=== PATIENT | female | born 1995 | race Caucasian/White ===

== ENCOUNTER 2017-02-05 15:35 | Emergency (ER) | payer OTHER ==
[2017-02-05 15:58] VITALS: RESP 16
--- NOTE | 2017-02-05 17:19 | EDPHY ---
H & P Stated Complaint: BACK, NECK PAIN, DISORGANIZED THINKING SINCE YESTERDAY HPI/ROS: CHIEF COMPLAINT: Neck pain HISTORY OF PRESENT ILLNESS: The patient is a 21 y/o female arriving with her mom complaining of neck pain and hot and cold flashes onset yesterday morning. She woke up yesterday with left-sided neck pain extending from her ear down to the base of her neck which is worse with movement and was accompanied by pain in her low back, high heart rate, and a temperature of 99.9 F. During the day yesterday she noticed slower than average reflexes, such as hitting herself in the face while opening cabinet doors, and out of the ordinary behavior such as trying to drive out of the garage without opening the door. She was seen at [facility] yesterday and tested for mononucleosis and strep which came back negative, though she was noted to have "pressure build up" in the left ear. Today her back pain has moved to her midback. She denies any recent trauma. She has mild global headache. She does not have shoulder or arm pain and denies arm numbness or weakness.She is up to date on shots, including meningitis vaccine. REVIEW OF SYSTEMS: A ten point review of systems was performed and is negative with the exception of the items mentioned in the HPI. Past medical history: Right upper quadrant abdominal pain that has been evaluated and found to be normal Past surgical history: Denies Family history: Non-contributory Social history: [employer] student, non-smoker, studies engineering, mother at bedside General Appearance: Alert. Vital signs reviewed. BP 126/76. Afebrile. Eyes: Pupils equal and round, no conjunctival injection, no discharge. Anicteric. ENT, Mouth: Mucous membranes are moist, no oropharyngeal erythema or edema. Neck: Enlarged and tender lymph node on left side, supple. No meningismus, negative Kernig's and Brudzinski's. Respiratory: Lungs are clear to auscultation; no wheezes, rales, or rhonchi. Cardiovascular: Regular rate and rhythm; no murmur, rub, or gallop. Gastrointestinal: Abdomen is soft and nontender, no masses or organomegaly, bowel sounds normal. Skin: Warm and dry, no rashes on exposed skin, normal color. Back: Nontender to palpation over the thoracolumbar spine. No CVAT. Extremities: No lower extremity edema, no calf tenderness or swelling. Neurological: Alert and oriented. Moving all four extremities easily and equally. Cranial nerves II through XII are examined and are intact (visual acuity not tested). Strength is 5 over 5 bilaterally with testing of all major motor groups. Sensation is intact to light touch over all 4 extremities. Deep tendon reflexes are 2+ in the biceps and knees bilaterally. Gait is normal. [id number] is performed accurately. Psychiatric: Normal affect. - Personal History LMP (Females 10-55): Extended Cycle BCP/Inj Current Tetanus Diphtheria and Acellular Pertussis (TDAP): Yes Tetanus Vaccine Date: < 10 YEARS - Medical/Surgical History Hx Asthma: Yes Hx Chronic Respiratory Disease: No Hx Diabetes: No Hx Cardiac Disease: No Hx Renal Disease: No Hx Cirrhosis: No Hx Alcoholism: No Hx HIV/AIDS: No Hx Splenectomy or Spleen Trauma: No Other PMH: PMH- EXERCISED INDUCED ASTHMA. PSH- T&A, CYST REMOVAL, WISDOM - Social History Smoking Status: Never smoked Constitutional: Initial Vital Signs Temperature (C) 37.3 C 02/05/17 15:54 Heart Rate 70 02/05/17 15:54 Respiratory Rate 16 02/05/17 15:54 Blood Pressure 126/76 H 02/05/17 15:54 O2 Sat (%) 99 02/05/17 15:54 O2 Delivery Mode Room Air Allergies/Adverse Reactions: barley Allergy (Verified 03/12/16 16:19) gluten Allergy (Verified 03/12/16 16:19) wheat Allergy (Verified 03/12/16 16:19) ALMONDS Allergy (Uncoded 03/12/16 16:19) DAIRY Allergy (Uncoded 03/12/16 16:19) RYE Allergy (Uncoded 03/12/16 16:19) Home Medications: Medication Instructions Recorded Albuterol Hfa Anes Only 03/12/16 Microgestin Fe 1-20 Tablet 03/12/16 CYCLOBENZAPRINE HCL [Flexeril] 5 mg PO TIDPRN PRN #10 tab 02/05/17 Medical Decision Making ED Course/Re-evaluation: The patient is a healthy 21 y/o female complaining of left-sided neck pain and disordered thinking onset yesterday. She was seen by [facility] yesterday and tested for mononucleosis and strep, both negative. She had a low grade fever, 99.9 F, yesterday, by her report . She is up to date on shots, including meningitis. She has no other associated symptoms. She received a dose of tylenol for her neck pain and mild headache. Neurologic exam is normal. She is not febrile, has no meningeal signs on exam. I do not think that this is bacterial meningitis. Viral meningitis also unlikely. I am more concerned about vascular dissection. CT head, and CTA head and neck performed. 1901: I spoke with radiology regarding the patients imaging. Ct and CTAs are normal, no ICH and no dissection. 1919: I reassessed patient and found her condition unchanged. I informed her of the results of her imaging. We discussed the possibility of meningitis and I explained that bacterial meningitis is quite unlikely. We discussed LP to assess spinal fluid for signs of meningitis. Both she and her mother feel that this is not necessary and I agree. I feel she is safe to return home. She is comfortable with this course of action. Return precaution and follow up given. Symptomatic treatment reviewed. Will try some flexeril for possible muscle spasm causing her neck pain (no radicular findings). Danger signs reviewed. Differential Diagnosis: I considered a ddx that includes but is not limited to tension headache, muscle spasm, migraine headache, meningitis, ICH, carotid or vertebral dissection, venous sinus thrombosis. - Data Points Laboratory Results: Laboratory Results 02/05/17 17:15 02/05/17 17:15 Medications Given: Discontinued Medications Acetaminophen (Tylenol) 650 mg PO EDNOW ONE Stop: 02/05/17 18:36 Last Admin: 02/05/17 18:51 Dose: 650 mg Departure - Departure Disposition: Home, Routine, Self-Care Clinical Impression: Neck pain on left side, Muscle spasm Headache Qualifiers: Headache type: tension-type Headache chronicity pattern: acute headache Intractability: not intractable Qualified Code(s): G44.209 - Tension-type headache, unspecified, not intractable Condition: Good Instructions: Muscle Spasm (ED), General Headache (ED), Neck Pain (ED) Additional Instructions: 1. Take medications as directed below as needed for symptoms for 3-5 days. Take prescriptions as directed as needed. 2. Purchase a lidocaine patch and use as directed on packaging for symptoms. 2. Follow-up with your primary care provider in 3-5 days for unimproved symptoms. 3. Return to the ED for weakness or numbness on one side of the body, difficulty speaking, dramatic worsening headache, high fever, or other worsening of condition. Adult Pain & Fever Control: We recommend Acetaminophen (Tylenol) and Ibuprofen (Motrin,Advil) for pain and fever control. When fever is high or pain severe, both drugs can be used at the same time, but at different intervals. Please note the time differences. Your dose is: Acetaminophen 650mg every 4 to 6 hours Ibuprofen 600mg every 6-8 hours with food Note: do not take Acetaminophen with Hydrocodone (Vicodin, Lortab) or Oycodone (Percocet). These medications also contain Acetaminophen. No more than 3000mg of Acetaminophen should be taken in 24 hours (for an adult). Referrals: [facility] [Other] - As per Instructions Stand Alone Forms: Work Excuse Prescriptions: CYCLOBENZAPRINE HCL [Flexeril] 5 mg PO TIDPRN PRN #10 tab PRN Reason: neck pain, muscle spasm Report Scribed for: Jihan Dutton Report Scribed by: Mi Garcia Date of Report: 02/05/17 Time of Report: 17:39 Physician Review and Approval Statement: 02/11/17 14:21 Portions of this chart were entered by a medical appliance maker. I personally performed the HPI, MDM, and PE. I have reviewed the documentation.
[2017-02-05 17:57] LABS: % IMMATURE GRANULYOCYTES 0.9 % (0.0-1.1); ABSOLUTE IMMATURE GRANULOCYTES 0.07 10^3/uL (0.00-0.10); ADD DIFF? NO; ADD MORPH? NO; ADD SCAN? NO; ATYPICAL LYMPHOCYTE FLAG 0 (0-99); FRAGMENT RBC FLAG 0 (0-99); HEMATOCRIT 41.6 % (38.0-47.0); HEMOGLOBIN 14.1 g/dL (12.6-16.3); LEFT SHIFT FLG 10 (0-99); LIPEMIA HEMOLYSIS FLAG 90 (0-99); MEAN CELL HEMOGLOBIN 32.1 pg (27.9-34.1); MEAN CELL HEMOGLOBIN CONCENTR. 33.9 g/dL (32.4-36.7); MEAN CELL VOLUME 94.8 fL (81.5-99.8); MEAN PLATELET VOLUME 9.5 fL (8.7-11.7); PLATELET CLUMPS FLAG 0 (0-99); PLATELET COUNT 239 10^3/uL (150-400); RED BLOOD CELL COUNT 4.39 10^6/uL (4.18-5.33); RED CELL DISTRIBUTION WIDTH 11.5 % (11.5-15.2)
[2017-02-05 18:12] LABS: ANION GAP 12 mEq/L (8-16); CALCIUM 9.7 mg/dL (8.5-10.4); CARBON DIOXIDE 22 mEq/l (22-31); CHLORIDE 104 mEq/L (97-110); CREATININE 0.9 mg/dL (0.6-1.0); GLOMERULAR FILTRATION RATE > 60; GLUCOSE 97 mg/dL (70-100); SODIUM 138 mEq/L (134-144)
[2017-02-05] MEDS ORDERED: IOPAMIDOL (ISOVUE 370) 100 ML BTL IV ONE (18:20)
[2017-02-05] MEDS ORDERED: ACETAMINOPHEN 325 MG TAB PO ONE (18:35)
[2017-02-05 19:19] VITALS: BP 117/78; PULSE 84; O2SAT 96
[2017-02-05 20:10] VITALS: TEMP 97.5
== END 2017-02-05 20:10 | disposition home or self-care (01) ==
DX: M62.838 Other muscle spasm (principal); G44.209 Tension-type headache, unspecified, not intractable; J45.909 Unspecified asthma, uncomplicated
CPT/HCPCS: Q9967